=== PATIENT | male | born 1965 | race Two or more races ===

== ENCOUNTER 2019-10-28 18:24 | Emergency (ER) | payer SELFPAY ==
[~2019-10-28] VITALS: Ht 170.2 cm; Wt 79.4 kg
[2019-10-28 18:24] VITALS: BP 140/89
--- NOTE | 2019-10-28 18:24 | NUR ---
ED Nurse Note: Patient BIBA RA from street c/o ETOH, unk amount. Pt is calm and cooperative. Not in any distress. Afebrile. Will cont to monitor.
--- NOTE | 2019-10-28 18:51 | Emergency Room Report ---
History of Present Illness General Chief Complaint: Alcohol Intoxication Source: Patient Present Illness HPI Disclaimer: Please note that this report is being documented using DRAGON technology. This can lead to erroneous entry secondary to incorrect interpretation by the dictating instrument. HPI: 53-year-old [place]ien-speaking male presents for evaluation of altered mental status. He is brought in by EMS from the street after he was found staggering in the streets and unable to walk or stand on his own. They were concerned for alcohol intoxication. He is somnolent but arousable. Speech is dysarthric and the patient states he is feeling fine. He drifts off to sleep during my exam but does not appear to be any distress. No obvious outward signs of trauma. He is moving all extremities. PMH: Could not obtain from patient PSH: Could not obtain from patient Allergies: Could not obtain from patient Social Hx: Could not obtain from patient Allergies: Coded Allergies: No Known Allergies (Unverified , 10/28/19) COVID-19 Screening Contact w/high risk pt: No Recent Travel to affected area: No Experienced COVID-19 symptoms?: No Nursing Documentation-PMH Past Medical History: No Stated History Review of Systems All Other Systems: limited - Due to clinical condition. Physical Exam Vital Signs Date Time Temp Pulse Resp B/P (MAP) Pulse Ox O2 Delivery O2 Flow Rate FiO2 10/28/19 18:18 97.3 110 18 140/89 (106) 94 Room Air General: Somnolent but arousable to minimal stimulation, no acute distress HEENT: NC/AT. No scalp or face hematomas lacerations or abrasions. EOMI. injected sclera bilaterally. Cardiovascular: Slightly tachycardic. S1 and S2 normal. No murmur appreciated Resp: Normal work of breathing. Abdomen: Abdomen is soft, nondistended. Nontender Skin: Intact. No abrasions, laceration or rash over the exposed skin MSK: Normal tone and bulk. Moving all extremities. No obvious deformity. Neuro: Somnolent but arousable. Slurred speech. Cooperative with exam and moving all extremities. GCS 14. Medical Decision Making Diagnostic Impression: Primary Impression: Acute alcoholic intoxication ER Course This a 53-year-old male presenting for evaluation of difficulty ambulating and altered mental status. Concern for alcohol intoxication, substance abuse, electrolyte abnormality, dehydration, occult injury. Chemistry obtained to rule out severe electrolyte abnormalities but has returned within normal limits. Alcohol elevated consistent with acute intoxication. The patient will be allowed to metabolize and discharged once clinically sober. Laboratory Tests Test 10/28/19 18:45 Sodium Level 146 MMOL/L (136-145) H Potassium Level 3.9 MMOL/L (3.5-5.1) Chloride Level 106 MMOL/L (98-107) Carbon Dioxide Level 26 MMOL/L (21-32) Anion Gap 14 mmol/L (5-15) Blood Urea Nitrogen 13 mg/dL (7-18) Creatinine 1.0 MG/DL (0.55-1.30) Estimated Glomerular Filtration Rate > 60 mL/min (>60) Glucose Level 92 MG/DL (74-106) Calcium Level 7.8 MG/DL (8.5-10.1) L Serum Alcohol 436 mg/dL Last Vital Signs Date Time Temp Pulse Resp B/P (MAP) Pulse Ox O2 Delivery O2 Flow Rate FiO2 10/28/19 18:24 110 18 Room Air 10/28/19 18:24 97.3 140/89 94 Disposition: HOME, SELF-CARE Condition: Stable Fermín Saleh MD October 28, 2019 18:51
--- NOTE | 2019-10-28 19:06 | NUR ---
ED Nurse Note: Received report from MILTON Oliver. Patient resting in bed, no acute distress noted.
[2019-10-28 19:08] LABS: ANION GAP 14 mmol/L (5-15); BLOOD UREA NITROGEN 13 mg/dL (7-18); CALCIUM 7.8 MG/DL (8.5-10.1); CARBON DIOXIDE 26 MMOL/L (21-32); CHLORIDE 106 MMOL/L (98-107); POTASSIUM 3.9 MMOL/L (3.5-5.1); SODIUM 146 MMOL/L (136-145)
--- NOTE | 2019-10-28 19:12 | NUR ---
HAND-OFF: Report given to Justa ROSE. Endorsed plan of care.
[2019-10-28 20:23] VITALS: BP 135/78
--- NOTE | 2019-10-28 22:42 | NUR ---
ED Nurse Note: Provided patient with oral hydration, tolerated well.
[2019-10-29 03:07] VITALS: BP 138/88
[2019-10-29 05:00] VITALS: BP 135/85
--- NOTE | 2019-10-29 05:00 | NUR ---
ER DISCHARGE NOTE: Patient is cleared to be discharged per ERMD, pt is aox4, on room air, with stable vital signs. pt was given dc instructions and homeless resources, pt was able to verbalize understanding, pt id band and iv site removed intact without complications. pt is able to ambulate with steady gait. pt took all belongings. pt given food and drink. pt clothing adequate for weather. pt stable upon discharge.
== END 2019-10-29 05:00 | disposition home or self-care (01) ==
LOC: EDBD 18:24 → EMR 18:49
DX: F10.129 Alcohol abuse with intoxication, unspecified (principal); Y90.8 Blood alcohol level of 240 mg/100 ml or more
CPT/HCPCS: 36415; 80048; 99283; G0480